=== PATIENT | female | born 1990 | race Hispanic/Latino ===

== ENCOUNTER 2017-08-19 19:11 | Emergency (ER) | payer SELFPAY ==
[~2017-08-19] VITALS: Ht 152.4 cm; Wt 62.6 kg
[~2017-08-19 19:11] MED LIST: ADVIL PM1 CAP PO; ANTIBIOTIC PO; BACTRIM DS1 TAB PO; BACTROBAN2 % EX; CEPHALEXIN500 MG OR; CEPHALEXIN500 MG PO; CIPRO500 MG OR; CIPROFLOXACN500 MG PO; CLINDAMYCIN300 M1 PO; DOXYCYCL HYC100 M4 PO; FLUOXETINE20 MG PO; HYDROXYZINE PAM25 MG PO; IBUPROFEN600 MG PO; IRON HIGH-POTE325 MG PO; KEFLEX500 M1 PO; LORTAB 7.5 PO; LORTAB5 PO; MEDDOSEPAK PO; METOCLOPRAM10 MG OR; MIRALAX3350 N1 PO; MUPIROCIN2 % EX; NITROFURANTOIN100 MG PO; NO; NO HOME MEDS; PERCOCET 5/325M1 TAB PO; PRE-NATAL PO; PREVACID30 M2 PO; PRILOSEC20 MG/CAP PO; PYRIDIUM200 MG PO; TESSALON200 MG OR; TORADOL30 MG/VIAL IJ; TRAZODONE50 MG PO; ULTRAM50 M1 PO; ULTRAM50 MG OR; UNISOM SLEEP50 MG PO; no home meds
[2017-08-19 21:37] LABS: INFLUENZA A NONE DETECTED (NONE DETECT); INFLUENZA B NONE DETECTED (NONE DETECT)
[2017-08-19] MEDS ORDERED: AMOXICILLIN500 MG PO (23:02)
[2017-08-19] MEDS ORDERED: CODEINE/GUAIFEN1 SOL PO (23:02)
[2017-08-19 23:12] VITALS: BP 111/78
== END 2017-08-19 23:12 | disposition home or self-care (01) | DRG 203 ==
LOC: ED 19:11
PROVIDERS: Emergency Medicine
DX: J40 Bronchitis, not specified as acute or chronic (principal); F17.210 Nicotine dependence, cigarettes, uncomplicated; R10.11 Right upper quadrant pain; R05 Cough

== ENCOUNTER 2018-09-05 14:22 | Emergency (ER) | payer SELFPAY ==
[~2018-09-05] VITALS: Ht 152.4 cm; Wt 63.6 kg
[~2018-09-05 14:22] MED LIST changes: +AMOXICILLIN500 MG PO; +CODEINE/GUAIFEN1 SOL PO
[2018-09-05 14:51] LABS: URINE BILIRUBIN - DIPSTICK NEGATIVE (NEGATIVE); URINE BLOOD DIPSTICK MODERATE (NEGATIVE); URINE COLOR YELLOW; URINE GLUCOSE - DIPSTICK 250 mg/dL (NEGATIVE); URINE KETONE NEGATIVE (NEGATIVE); URINE NITRITE - DIPSTICK NEGATIVE (Negative); URINE PROTEIN - DIPSTICK 30 mg/dL (NEG-TRACE); URINE SPECIFIC GRAVITY >=1.030; URINE UROBILINOGEN - DIPSTICK 0.2 E.U./dL (0.2)
[2018-09-05 14:52] LABS: URINE LEUK ESTERASE SMALL (NEGATIVE)
[2018-09-05 15:02] LABS: URINE SQUAMOUS EPITHELIAL CELL FEW EPI/hpf (0-FEW); URINE WBC 50-100 WBC/hpf (0-5)
[2018-09-05] MEDS ORDERED: PYRIDIUM200 MG PO (15:15)
[2018-09-05] MEDS ORDERED: KEFLEX500 M1 PO (15:15)
[2018-09-05 15:49] VITALS: BP 128/84
== END 2018-09-05 15:45 | disposition home or self-care (01) | DRG 690 ==
LOC: ED 14:22
DX: N39.0 Urinary tract infection, site not specified (principal); R50.9 Fever, unspecified; F17.210 Nicotine dependence, cigarettes, uncomplicated; B96.20 Unspecified Escherichia coli [E. coli] as the cause of diseases classified elsewhere

== ENCOUNTER 2018-09-26 19:10 | Emergency (ER) | payer SELFPAY ==
[~2018-09-26] VITALS: Ht 152.4 cm; Wt 55.0 kg
[2018-09-26 20:06] LABS: IMMATURE GRANULOCYTES 0.6 % (0.0-5.0); MEAN CELL VOLUME 77.1 fL CALC (80.0-100.0); MEAN CORPUSCULAR HGB 25.3 pG CALC (26.0-32.0); MEAN CORPUSCULAR HGB CONC 32.9 g/L CALC (32.0-36.0); NEUT# 15.08 thou/uL (2.00-7.15); RED BLOOD COUNT 4.62 mill/uL (4.20-5.60); RED CELL DISTRI WIDTH 13.2 % (11.5-15.5)
[2018-09-26 20:11] LABS: ALKALINE PHOSPHATASE 86 u/l (38-126); ANION GAP 13 (6-22 (CALC)); BILIRUBIN, TOTAL 1.1 mg/dL (0.0-1.4); BUN 14 mg/dL (7-17); BUN/CREATININE RATIO 23 (12-20 (CALC)); CARBON DIOXIDE 23 mmol/l (22-30); CHLORIDE 102 mmol/l (95-108); CREATININE 0.6 mg/dL (0.5-1.0); GFR > 60 ML/MIN (>=60 (CALC)); GFR FOR AFR.AMER. > 60 ML/MIN (>=60 (CALC)); POTASSIUM 3.9 mmol/l (3.5-5.1); SGOT/AST 30 u/l (14-36); SODIUM 134 mmol/l (137-146); TOTAL PROTEIN 6.2 g/dL (6.3-8.2)
[2018-09-26 20:18] LABS: ALBUMIN 3.5 g/dL (3.2-5.0); HEMATOCRIT 35.6 % (37.0-47.0); HEMOGLOBIN 11.7 g/dl (12.0-16.0)
[2018-09-26 20:31] LABS: URINE BILIRUBIN - DIPSTICK NEGATIVE (NEGATIVE); URINE BLOOD DIPSTICK LARGE (NEGATIVE); URINE COLOR YELLOW; URINE GLUCOSE - DIPSTICK NEGATIVE (NEGATIVE); URINE KETONE NEGATIVE (NEGATIVE); URINE LEUK ESTERASE LARGE (NEGATIVE); URINE NITRITE - DIPSTICK NEGATIVE (Negative); URINE PH 7.5 (4.5-8.0); URINE PROTEIN - DIPSTICK 30 mg/dL (NEG-TRACE); URINE SPECIFIC GRAVITY 1.015; URINE UROBILINOGEN - DIPSTICK 0.2 E.U./dL (0.2); URINE WBC 50-100 WBC/hpf (0-5)
[2018-09-26 20:32] LABS: URINE BACTERIA MODERATE hpf; URINE EPITHELIAL CELLS MODERATE EPI/hpf (0-FEW)
[2018-09-26 20:51] LABS: BARBITURATES NEGATIVE (NEGATIVE); COCAINE NEGATIVE (NEGATIVE); METHADONE NEGATIVE (NEGATIVE); OXCYCODONE NEGATIVE (NEGATIVE); TETRAHYDROCANNABIONOL POSITIVE (NEGATIVE); TRICYLIC ANTIDEPRESSANTS NEGATIVE (NEGATIVE)
[2018-09-26] MEDS ORDERED: CIPROFLOXACN500 MG PO (22:58)
[2018-09-26] MEDS ORDERED: PYRIDIUM200 MG PO (22:58)
[2018-09-26 23:25] VITALS: BP 99/54
== END 2018-09-26 23:30 | disposition home or self-care (01) | DRG 690 ==
LOC: ED 19:10
PROVIDERS: Emergency Medicine
DX: N39.0 Urinary tract infection, site not specified (principal); F19.10 Other psychoactive substance abuse, uncomplicated; F17.210 Nicotine dependence, cigarettes, uncomplicated

== ENCOUNTER 2019-05-14 16:12 | Emergency (ER) | payer SELFPAY ==
[~2019-05-14] VITALS: Ht 152.4 cm; Wt 56.0 kg
[2019-05-14] MEDS ORDERED: CRIXIVAN400 MG PO (18:27)
[2019-05-14] MEDS ORDERED: COMBIVIR 1501 COMBO PO (18:27)
[2019-05-14 19:03] LABS: HEMATOCRIT 37.2 % (37.0-47.0); HEMOGLOBIN 12.2 g/dl (12.0-16.0); IMMATURE GRANULOCYTES 0.4 % (0.0-5.0); MEAN CELL VOLUME 75.9 fL CALC (80.0-100.0); MEAN CORPUSCULAR HGB 24.9 pG CALC (26.0-32.0); MEAN CORPUSCULAR HGB CONC 32.8 g/L CALC (32.0-36.0); NEUT# 8.98 thou/uL (2.00-7.15); RED BLOOD COUNT 4.9 mill/uL (4.20-5.60); RED CELL DISTRI WIDTH 13.5 % (11.5-15.5)
[2019-05-14 19:22] LABS: URINE BILIRUBIN - DIPSTICK NEGATIVE (NEGATIVE); URINE BLOOD DIPSTICK NEGATIVE (NEGATIVE); URINE COLOR YELLOW; URINE GLUCOSE - DIPSTICK NEGATIVE (NEGATIVE); URINE KETONE NEGATIVE (NEGATIVE); URINE LEUK ESTERASE NEGATIVE (NEGATIVE); URINE NITRITE - DIPSTICK NEGATIVE (Negative); URINE PH 5.5 (4.5-8.0); URINE PROTEIN - DIPSTICK NEGATIVE (NEG-TRACE); URINE SPECIFIC GRAVITY 1.025; URINE UROBILINOGEN - DIPSTICK 0.2 E.U./dL (0.2)
[2019-05-14 19:42] LABS: ALKALINE PHOSPHATASE 85 u/l (38-126); ANION GAP 13 (6-22 (CALC)); BUN 20 mg/dL (7-17); BUN/CREATININE RATIO 31 (12-20 (CALC)); CARBON DIOXIDE 25 mmol/l (22-30); CHLORIDE 104 mmol/l (95-108); CREATININE 0.6 mg/dL (0.5-1.0); GFR > 60 ML/MIN (>=60 (CALC)); GFR FOR AFR.AMER. > 60 ML/MIN (>=60 (CALC)); POTASSIUM 4.2 mmol/l (3.5-5.1); SGOT/AST 32 u/l (14-36); SODIUM 138 mmol/l (137-146)
[2019-05-14 19:43] LABS: ALBUMIN 4.4 g/dL (3.2-5.0); BILIRUBIN, TOTAL 0.6 mg/dL (0.0-1.4); TOTAL PROTEIN 7.5 g/dL (6.3-8.2)
[2019-05-14 20:23] VITALS: BP 108/72
== END 2019-05-14 20:25 | disposition home or self-care (01) | DRG 923 ==
LOC: ED 16:12
PROVIDERS: Family Medicine
DX: T74.21XA Adult sexual abuse, confirmed, initial encounter (principal); S50.11XA Contusion of right forearm, initial encounter; S70.12XA Contusion of left thigh, initial encounter; S80.12XA Contusion of left lower leg, initial encounter; S70.11XA Contusion of right thigh, initial encounter; M54.2 Cervicalgia; M25.512 Pain in left shoulder; F17.200 Nicotine dependence, unspecified, uncomplicated; Y07.03 Male partner, perpetrator of maltreatment and neglect; Y93.89 Activity, other specified; Y92.003 Bedroom of unspecified non-institutional (private) residence as the place of occurrence of the external cause
CPT/HCPCS: J0561